=== PATIENT | male | born 1975 | race Caucasian/White ===

== ENCOUNTER 2017-10-02 09:23 | Emergency (ER) | payer OTHER ==
[~2017-10-02] VITALS: Ht 175.3 cm; Wt 86.0 kg
[2017-10-02] MEDS ORDERED: PRED5TAB PO (10:25)
[2017-10-02] MEDS ORDERED: DIVA125C3 PO (10:26)
[2017-10-02] MEDS ORDERED: HYDR25TA6 PO (10:26)
[2017-10-02] MEDS ORDERED: CARB200T4 PO (10:26)
[2017-10-02] MEDS ORDERED: SODIUM CHLORIDE FLUSH 10ML SYR IVF ONE (10:30)
[2017-10-02] MEDS ORDERED: DIAZEPAM 5 MG/ML, 2ML IVPush ONE (10:30)
[2017-10-02] MEDS ORDERED: SODIUM CHLORIDE 0.9% 1,000ML IVBOLUS ONE (10:30)
[2017-10-02] MEDS ORDERED: DIAZEPAM 5 MG/ML, 2ML IM ONE (10:30)
[2017-10-02 10:38] LABS: BASOPHILS # (AUTO) 0.03 x10^3/uL (0-0.1); BASOPHILS % (AUTO) 0 % (0-1); EOSINOPHILS # (AUTO) 0.01 x10^3/uL (0-0.4); EOSINOPHILS % (AUTO) 0 % (1-7); LYMPHOCYTES # (AUTO) 0.96 x10^3/uL (1-3.4); LYMPHOCYTES % (AUTO) 6 % (22-44); MD NO; MEAN CORPUSCULAR HEMOGLOBIN 34.9 pg (27.5-34.5); MEAN CORPUSCULAR HGB CONC 34.5 g/dL (33.2-36.2); MEAN CORPUSCULAR VOLUME 101.2 fL (81-97); MEAN PLATELET VOLUME 7.4 fL (7.4-10.4); MONOCYTES # (AUTO) 0.62 x10^3/uL (0.2-0.8); MONOCYTES % (AUTO) 4 % (2-9); NEUTROPHILS # (AUTO) 15.76 x10^3/uL (1.8-6.8); NEUTROPHILS % (AUTO) 91 % (42-75); PLATELET COUNT 256 x10^3/uL (130-400); RED BLOOD COUNT 4.74 x10^6/uL (4.38-5.82); RED CELL DISTRIBUTION WIDTH 12.7 % (9.4-14.8)
[2017-10-02 10:50] LABS: ALBUMIN 3.8 g/dL (3.4-5.0); ANION GAP 10 mmol/L (5-15); CALCIUM 8.6 mg/dL (8.5-10.1); CHLORIDE 100 mmol/L (98-107)
[2017-10-02 10:53] LABS: ALANINE AMINOTRANSFERASE 28 U/L (12-78); ALKALINE PHOSPHATASE 48 U/L (45-117); BILIRUBIN,TOTAL 0.4 mg/dL (0.2-1.0); CREATININE 0.78 mg/dL (0.7-1.3); TOTAL PROTEIN 6.9 g/dL (6.4-8.2)
[2017-10-02] MEDS ORDERED: DIAZEPAM 5 MG/ML, 2ML ONE ×2 (11:11→11:20)
[2017-10-02 11:26] VITALS: BP 127/84
[2017-10-02] MEDS ORDERED: DIAZEPAM 5 MG/ML, 2ML IV ONE (11:30)
[2017-10-03] MEDS ORDERED: METH500T97 PO (10:25)
== END 2017-10-02 12:22 | disposition home or self-care (01) ==
LOC: ED 10:47
DX: M54.5 Low back pain (principal); M54.6 Pain in thoracic spine; R55 Syncope and collapse; R11.0 Nausea
CPT/HCPCS: 36415; 80053; 85025; 93005; 96374; 99285; J3360

== ENCOUNTER 2017-10-03 09:35 | Emergency (ER) | payer OTHER ==
[~2017-10-03] VITALS: Ht 175.3 cm; Wt 86.5 kg
[~2017-10-03 09:35] MED LIST: CARB200T4 PO; DIVA125C3 PO; HYDR25TA6 PO; PRED5TAB PO
[2017-10-03] MEDS ORDERED: METH500T97 PO (10:25)
[2017-10-03] MEDS ORDERED: ONDANSETRON 2MG/ML, 2ML IVPush ONE (11:00)
[2017-10-03] MEDS ORDERED: DIAZEPAM 5 MG/ML, 2ML IV ONE (11:00)
[2017-10-03] MEDS ORDERED: SODIUM CHLORIDE FLUSH 10ML SYR IVF ONE (11:00)
[2017-10-03] MEDS ORDERED: KETOROLAC 30 MG/1 ML IVPush ONE (11:00)
[2017-10-03 11:04] LABS: BASOPHILS # (AUTO) 0.06 x10^3/uL (0-0.1); BASOPHILS % (AUTO) 1 % (0-1); EOSINOPHILS % (AUTO) 0 % (1-7); LYMPHOCYTES # (AUTO) 2.52 x10^3/uL (1-3.4); LYMPHOCYTES % (AUTO) 19 % (22-44); MD NO; MEAN CORPUSCULAR HEMOGLOBIN 35.7 pg (27.5-34.5); MEAN CORPUSCULAR HGB CONC 35.1 g/dL (33.2-36.2); MEAN CORPUSCULAR VOLUME 101.7 fL (81-97); MEAN PLATELET VOLUME 7.4 fL (7.4-10.4); MONOCYTES # (AUTO) 0.72 x10^3/uL (0.2-0.8); MONOCYTES % (AUTO) 5 % (2-9); NEUTROPHILS # (AUTO) 9.99 x10^3/uL (1.8-6.8); NEUTROPHILS % (AUTO) 75 % (42-75); PLATELET COUNT 256 x10^3/uL (130-400); RED BLOOD COUNT 4.77 x10^6/uL (4.38-5.82); RED CELL DISTRIBUTION WIDTH 12.9 % (9.4-14.8)
[2017-10-03 11:15] LABS: ALBUMIN 4.1 g/dL (3.4-5.0); ANION GAP 8 mmol/L (5-15); CALCIUM 9.1 mg/dL (8.5-10.1); CHLORIDE 102 mmol/L (98-107); CREATININE 0.94 mg/dL (0.7-1.3)
[2017-10-03] MEDS ORDERED: DIAZEPAM 5 MG/ML, 2ML ONE (11:54)
[2017-10-03] MEDS ORDERED: KETOROLAC 30 MG/1 ML ONE (11:54)
[2017-10-03] MEDS ORDERED: ONDANSETRON 2MG/ML, 2ML ONE (11:54)
[2017-10-03 11:58] LABS: HCT (SEDRATE) 48.5 % (39.2-51.8)
[2017-10-03 12:15] LABS: C-REACTIVE PROTEIN, QUANT 0.07 mg/dL (0.02-0.49)
[2017-10-03 13:43] VITALS: BP 147/86
== END 2017-10-03 13:46 | disposition home or self-care (01) ==
LOC: ED 10:57
DX: R51 Headache (principal); M54.2 Cervicalgia; R11.2 Nausea with vomiting, unspecified; I10 Essential (primary) hypertension; F41.9 Anxiety disorder, unspecified
CPT/HCPCS: 36415; 70450; 72125; 72128; 80048; 82040; 82550; 83605; 85025; 85651; 86140; 96374; 96375; 99285; J1885; J3360